=== PATIENT | female | born 1985 | race Caucasian/White ===

== ENCOUNTER 2017-02-26 15:18 | Inpatient (IN) | payer MEDICAID ==
[~2017-02-26] VITALS: Ht 157.5 cm; Wt 56.0 kg
[2017-02-26] MEDS ORDERED: SODIUM CHLORIDE 0.9% 1,000 ML IV ONE (15:42)
[2017-02-26] MEDS ORDERED: METOCLOPRAMIDE 5 MG/ML, 2ML IVPush ONE (16:00)
[2017-02-26] MEDS ORDERED: MORPHINE SULFATE 4 MG/ML, 1ML IVPush ONE (16:00)
[2017-02-26] MEDS ORDERED: DIPHENHYDRAMINE 50 MG/ML, 1ML IVPush ONE (16:00)
[2017-02-26] MEDS ORDERED: SODIUM CHLORIDE FLUSH 10ML SYR IVF ONE (16:00)
[2017-02-26] MEDS ORDERED: SODIUM CHLORIDE 0.9% 1,000ML IVBOLUS ONE (16:00)
[2017-02-26] MEDS ORDERED: DIPHENHYDRAMINE 50 MG/ML, 1ML ONE (16:19)
[2017-02-26] MEDS ORDERED: MORPHINE SULFATE 4 MG/ML, 1ML ONE ×2 (16:19→17:35)
[2017-02-26] MEDS ORDERED: METOCLOPRAMIDE 5 MG/ML, 2ML ONE (16:20)
[2017-02-26 16:28] LABS: BASOPHILS # (AUTO) 0.02 x10^3/uL (0-0.1); BASOPHILS % (AUTO) 0 % (0-1); EOSINOPHILS # (AUTO) 0.01 x10^3/uL (0-0.4); EOSINOPHILS % (AUTO) 0 % (1-7); LYMPHOCYTES # (AUTO) 0.66 x10^3/uL (1-3.4); LYMPHOCYTES % (AUTO) 14 % (22-44); MD NO; MEAN CORPUSCULAR HGB CONC 33.3 g/dL (32.4-35.8); MEAN CORPUSCULAR VOLUME 102.3 fL (80-100); MEAN PLATELET VOLUME 8.3 fL (7.4-10.4); MONOCYTES % (AUTO) 12 % (2-9); NEUTROPHILS # (AUTO) 3.62 x10^3/uL (1.8-6.8); NEUTROPHILS % (AUTO) 74 % (42-75); PLATELET COUNT 125 x10^3/uL (130-400); RED BLOOD COUNT 3.83 x10^6/uL (3.82-5.3); RED CELL DISTRIBUTION WIDTH 19.8 % (9.6-15.2)
[2017-02-26] MEDS ORDERED: PLEASE ENTER ALLERGIES MC SCH (16:30)
[2017-02-26 16:43] LABS: ALANINE AMINOTRANSFERASE 58 U/L (12-78); ALBUMIN 3.4 g/dL (3.4-5.0); ANION GAP 16 mmol/L (5-15); CALCIUM 8.4 mg/dL (8.5-10.1); CHLORIDE 104 mmol/L (98-107); CREATININE 0.56 mg/dL (0.55-1.02)
[2017-02-26 16:44] LABS: TROPONIN I < 0.015 ng/mL (0.000-0.045)
[2017-02-26 16:47] LABS: ALKALINE PHOSPHATASE 83 U/L (45-117); BILIRUBIN,TOTAL 0.5 mg/dL (0.2-1.0); TOTAL PROTEIN 7.1 g/dL (6.4-8.2)
[2017-02-26] MEDS ORDERED: BISACODYL 10 MG SUPP PR PRN (18:00)
[2017-02-26] MEDS ORDERED: morphine SULFATE 10 MG/ML, 1ML IVPush ONE (18:00)
[2017-02-26] MEDS ORDERED: ENOXAPARIN 40 MG/0.4 ML ONE (18:14)
[2017-02-26] MEDS: D5%-0.45NACL+KCL 20MEQ 1,000 ML IV SCH (18:43)
[2017-02-26] MEDS: ENOXAPARIN 40 MG/0.4 ML SQ SCH (18:43)
[2017-02-26 20:00] VITALS: BP 117/83
[2017-02-26] MEDS ORDERED: LORazepam 2 MG/ML, 1ML ONE (20:19)
[2017-02-26] MEDS: LORazepam 2 MG/ML, 1ML IVPush PRN ×2 (20:21→23:32)
[2017-02-26] MEDS: morphine SULFATE 10 MG/ML, 1ML IVPush PRN ×2 (20:22→23:32)
[2017-02-26] MEDS ORDERED: MAGNESIUM SULFATE PMX 4GM/100M 100 ML IV ONE (21:00)
[2017-02-26 22:51] LABS: RAPID INFLUENZA A Negative (Negative); RAPID INFLUENZA B Negative (Negative)
[2017-02-27] MEDS ORDERED: SUCRALFATE 1 GM TABLET PO PRN
[2017-02-27] MEDS: D5%-0.45NACL+KCL 20MEQ 1,000 ML IV SCH ×2 (00:58→07:50)
[2017-02-27 01:31] VITALS: BP 120/77
[2017-02-27] MEDS: NICOTINE 7 MG/24 HR PATCH.TD24 TD SCH (01:37)
[2017-02-27] MEDS: ONDANSETRON 2MG/ML, 2ML IVPush PRN ×4 (01:37→21:22)
[2017-02-27] MEDS: LORazepam 2 MG/ML, 1ML IVPush PRN ×4 (02:31→13:38)
[2017-02-27] MEDS: morphine SULFATE 10 MG/ML, 1ML IVPush PRN ×4 (02:32→13:11)
[2017-02-27 03:11] LABS: CULTURE INDICATED? YES; MICROSCOPIC INDICATED
[2017-02-27] MEDS: SODIUM CHLORIDE 0.9% 1,000 ML IV SCH ×4 (05:29→21:32)
[2017-02-27 05:35] LABS: MEAN CORPUSCULAR HEMOGLOBIN 34.5 pg (27.0-34.8); MEAN CORPUSCULAR HGB CONC 33.6 g/dL (32.4-35.8); MEAN CORPUSCULAR VOLUME 102.6 fL (80-100); RED BLOOD COUNT 3.42 x10^6/uL (3.82-5.3); RED CELL DISTRIBUTION WIDTH 19.5 % (9.6-15.2)
[2017-02-27 05:36] LABS: ANION GAP 7 mmol/L (5-15); CALCIUM 7.4 mg/dL (8.5-10.1); CHLORIDE 103 mmol/L (98-107)
[2017-02-27 05:47] LABS: CREATININE 0.44 mg/dL (0.55-1.02)
[2017-02-27 06:04] LABS: BASOPHILS # (AUTO) 0.02 x10^3/uL (0-0.1); BASOPHILS % (AUTO) 1 % (0-1); EOSINOPHILS # (AUTO) 0.09 x10^3/uL (0-0.4); EOSINOPHILS % (AUTO) 2 % (1-7); LYMPHOCYTES # (AUTO) 0.71 x10^3/uL (1-3.4); LYMPHOCYTES % (AUTO) 16 % (22-44); MD SCAN; MEAN PLATELET VOLUME 8.4 fL (7.4-10.4); MONOCYTES # (AUTO) 0.52 x10^3/uL (0.2-0.8); MONOCYTES % (AUTO) 12 % (2-9); NEUTROPHILS # (AUTO) 3.08 x10^3/uL (1.8-6.8); NEUTROPHILS % (AUTO) 70 % (42-75); PLATELET COUNT 95 x10^3/uL (130-400)
[2017-02-27] MEDS: CITALOPRAM 10 MG TABLET PO SCH (07:53)
[2017-02-27 07:55] VITALS: BP 122/76
[2017-02-27] MEDS: SUCRALFATE 1 GM TABLET PO PRN ×2 (07:55→18:34)
[2017-02-27] MEDS: hydrOXyzine 10MG TABLET PO SCH (08:40)
[2017-02-27] MEDS: POTASSIUM CHLORIDE 20 MEQ, MAGNESIUM SULFATE 2 GM, THIAMINE 100 MG, MVI ADULT 10 ML, FO... IV SCH (10:25)
[2017-02-27 13:08] VITALS: BP 110/78
[2017-02-27] MEDS ORDERED: LORazepam 1MG TABLET PO PRN ×4 (14:30)
[2017-02-27] MEDS ORDERED: LORazepam 2 MG/ML, 1ML IV PRN ×4 (14:30)
[2017-02-27] MEDS ORDERED: POTASSIUM PHOSPHATE 44 MEQ in SODIUM CHLORIDE 0.9% 500 ML IV ONE (15:00)
[2017-02-27 15:16] LABS: CHOL/HDL RATIO 1.8; LDL/HDL RATIO 0.7 (0.5-3.0)
[2017-02-27] MEDS: HYDROmorphone 2 MG/ML, 1ML IVPush PRN ×3 (16:41→21:22)
[2017-02-27] MEDS: LORazepam 2 MG/ML, 1ML IV PRN (16:52)
[2017-02-27] MEDS: ENOXAPARIN 40 MG/0.4 ML SQ SCH ×2 (18:30→18:33)
[2017-02-27 19:12] VITALS: BP 106/76
[2017-02-27] MEDS: LORazepam 0.5MG TABLET PO PRN (21:46)
[2017-02-28] MEDS: NICOTINE 7 MG/24 HR PATCH.TD24 TD SCH (00:04)
[2017-02-28] MEDS: LORazepam 2 MG/ML, 1ML IV PRN ×2 (01:48→10:40)
[2017-02-28] MEDS: HYDROmorphone 2 MG/ML, 1ML IVPush PRN ×5 (01:50→20:20)
[2017-02-28 02:00] VITALS: BP 125/87
[2017-02-28] MEDS: SODIUM CHLORIDE 0.9% 1,000 ML IV SCH ×3 (05:23→17:32)
[2017-02-28] MEDS: ONDANSETRON 2MG/ML, 2ML IVPush PRN ×2 (05:23→16:07)
[2017-02-28 05:43] LABS: CHLORIDE 105 mmol/L (98-107)
[2017-02-28 05:51] LABS: MEAN CORPUSCULAR HEMOGLOBIN 34.4 pg (27.0-34.8); MEAN CORPUSCULAR HGB CONC 33.5 g/dL (32.4-35.8); MEAN CORPUSCULAR VOLUME 102.7 fL (80-100); RED BLOOD COUNT 3.35 x10^6/uL (3.82-5.3); RED CELL DISTRIBUTION WIDTH 19.5 % (9.6-15.2)
[2017-02-28 05:58] LABS: ALANINE AMINOTRANSFERASE 36 U/L (12-78); ALBUMIN 2.8 g/dL (3.4-5.0); ALKALINE PHOSPHATASE 81 U/L (45-117); ANION GAP 8 mmol/L (5-15); BILIRUBIN,TOTAL 0.6 mg/dL (0.2-1.0); CALCIUM 7.5 mg/dL (8.5-10.1); CREATININE 0.47 mg/dL (0.55-1.02)
[2017-02-28 06:09] LABS: BASOPHILS # (AUTO) 0.01 x10^3/uL (0-0.1); BASOPHILS % (AUTO) 0 % (0-1); EOSINOPHILS # (AUTO) 0.23 x10^3/uL (0-0.4); EOSINOPHILS % (AUTO) 6 % (1-7); LYMPHOCYTES # (AUTO) 0.74 x10^3/uL (1-3.4); LYMPHOCYTES % (AUTO) 18 % (22-44); MD SCAN; MEAN PLATELET VOLUME 8.8 fL (7.4-10.4); MONOCYTES # (AUTO) 0.58 x10^3/uL (0.2-0.8); MONOCYTES % (AUTO) 14 % (2-9); NEUTROPHILS # (AUTO) 2.55 x10^3/uL (1.8-6.8); NEUTROPHILS % (AUTO) 62 % (42-75); PLATELET COUNT 83 x10^3/uL (130-400)
[2017-02-28] MEDS: LORazepam 0.5MG TABLET PO PRN ×3 (06:27→20:20)
[2017-02-28 09:37] VITALS: BP 124/92
[2017-02-28] MEDS: hydrOXyzine 10MG TABLET PO SCH (10:40)
[2017-02-28] MEDS: CITALOPRAM 10 MG TABLET PO SCH (10:40)
[2017-02-28] MEDS: POTASSIUM CHLORIDE 20 MEQ, MAGNESIUM SULFATE 2 GM, THIAMINE 100 MG, MVI ADULT 10 ML, FO... IV SCH (12:35)
[2017-02-28 15:00] VITALS: BP 127/90
[2017-02-28] MEDS ORDERED: POTASSIUM PHOSPHATE 44 MEQ in SODIUM CHLORIDE 0.9% 500 ML IV ONE (15:30)
[2017-02-28] MEDS ORDERED: SUCRALFATE 1 GM TABLET PO SCH (16:00)
[2017-02-28] MEDS: CEFTRIAXONE PMX 1GM/50ML 50 ML IV SCH (17:38)
[2017-02-28 20:09] VITALS: BP 130/97
[2017-02-28] MEDS: SUCRALFATE 1 GM/10 ML UDC PO SCH (23:05)
[2017-03-01 00:10] VITALS: BP 124/86
[2017-03-01] MEDS: SODIUM CHLORIDE 0.9% 1,000 ML IV SCH ×4 (00:12→23:07)
[2017-03-01] MEDS: NICOTINE 7 MG/24 HR PATCH.TD24 TD SCH ×2 (00:21→23:07)
[2017-03-01] MEDS: LORazepam 0.5MG TABLET PO PRN ×5 (00:30→20:06)
[2017-03-01] MEDS: HYDROmorphone 2 MG/ML, 1ML IVPush PRN ×3 (00:30→09:11)
[2017-03-01 02:39] LABS: CLOSTRIDIUM DIFFICILE ANTIGEN POSITIVE; CLOSTRIDIUM DIFFICILE TOXIN NEGATIVE (Negative)
[2017-03-01] MEDS: metroNIDAZOLE 500 MG TABLET PO SCH ×4 (04:14→21:07)
[2017-03-01 06:02] LABS: MEAN CORPUSCULAR HEMOGLOBIN 34.5 pg (27.0-34.8); MEAN CORPUSCULAR HGB CONC 33.1 g/dL (32.4-35.8); MEAN CORPUSCULAR VOLUME 104.3 fL (80-100); MEAN PLATELET VOLUME 8.6 fL (7.4-10.4); PLATELET COUNT 90 x10^3/uL (130-400); RED BLOOD COUNT 3.33 x10^6/uL (3.82-5.3); RED CELL DISTRIBUTION WIDTH 19.4 % (9.6-15.2)
[2017-03-01] MEDS: SUCRALFATE 1 GM/10 ML UDC PO SCH ×2 (06:03→11:49)
[2017-03-01] MEDS: ONDANSETRON 2MG/ML, 2ML IVPush PRN ×3 (06:03→19:46)
[2017-03-01 06:09] LABS: ALBUMIN 2.9 g/dL (3.4-5.0); ANION GAP 3 mmol/L (5-15); CALCIUM 7.9 mg/dL (8.5-10.1); CHLORIDE 108 mmol/L (98-107)
[2017-03-01 06:12] LABS: ALANINE AMINOTRANSFERASE 33 U/L (12-78); ALKALINE PHOSPHATASE 88 U/L (45-117); BILIRUBIN,TOTAL 0.6 mg/dL (0.2-1.0); CREATININE 0.47 mg/dL (0.55-1.02); TOTAL PROTEIN 6.3 g/dL (6.4-8.2)
[2017-03-01 06:43] LABS: MD YES
[2017-03-01 06:46] LABS: ANISOCYTOSIS 1+; BAND#(MANUAL) 0.09 x10^3/uL; BANDS%(MANUAL) 3 % (0-7); EOS#(MANUAL) 0.15 x10^3/uL (0.0-0.4); EOS% (MANUAL) 5 % (1-7); LYMPH#(MANUAL) 0.78 x10^3/uL (1-3.4); LYMPHS% (MANUAL) 27 % (22-44); MONOS#(MANUAL) 0.44 x10^3/uL (0.3-2.7); MONOS% (MANUAL) 15 % (2-9); REACTIVE LYMPHS # (MANUAL) 0.03 x10^3/uL (0-0); REACTIVE LYMPHS % (MANUAL) 1 % (0-0); SEG#(MANUAL) 1.42 x10^3/uL (1.8-6.8); SEGS% (MANUAL) 49 % (42-75)
[2017-03-01 06:49] LABS: <PLATELET ESTIMATE> DECREASED; LARGE PLATELETS 1+; POLYCHROMASIA 1+
[2017-03-01 07:48] VITALS: BP 127/97
[2017-03-01] MEDS ORDERED: LORazepam 1MG TABLET ONE (09:01)
[2017-03-01] MEDS: hydrOXyzine 10MG TABLET PO SCH (09:11)
[2017-03-01] MEDS: CITALOPRAM 10 MG TABLET PO SCH (09:12)
[2017-03-01] MEDS: POTASSIUM CHLORIDE 20 MEQ, MAGNESIUM SULFATE 2 GM, THIAMINE 100 MG, MVI ADULT 10 ML, FO... IV SCH (11:49)
[2017-03-01 13:38] VITALS: BP 121/80
[2017-03-01 14:59] LABS: INTERNATIONAL NORMALIZED RATIO 1.07 (0.93-1.1); PROTHROMBIN TIME 11.1 Seconds (9.6-11.5)
[2017-03-01] MEDS: CEFTRIAXONE PMX 1GM/50ML 50 ML IV SCH (16:53)
[2017-03-01] MEDS: KETOROLAC 30 MG/1 ML IVPush PRN (16:53)
[2017-03-01] MEDS ORDERED: SUCRALFATE 1 GM/10 ML UDC PO PRN (18:00)
[2017-03-01 18:51] VITALS: BP 120/83
[2017-03-01] MEDS: NEUTRA PHOS K 250 MG TABLET PO SCH (20:06)
[2017-03-01] MEDS ORDERED: DIPHENHYDRAMINE 12.5MG/5ML, 10ML UDC PO PRN ×2 (22:30)
[2017-03-02] MEDS: LORazepam 0.5MG TABLET PO PRN ×3 (00:45→10:15)
[2017-03-02] MEDS: KETOROLAC 30 MG/1 ML IVPush PRN ×2 (00:46→09:16)
[2017-03-02 01:57] VITALS: BP 91/51
[2017-03-02 05:19] LABS: CHLORIDE 108 mmol/L (98-107); MEAN CORPUSCULAR HEMOGLOBIN 34.4 pg (27.0-34.8); MEAN CORPUSCULAR HGB CONC 33.2 g/dL (32.4-35.8); MEAN CORPUSCULAR VOLUME 103.6 fL (80-100); MEAN PLATELET VOLUME 9.1 fL (7.4-10.4); PLATELET COUNT 108 x10^3/uL (130-400); RED BLOOD COUNT 3.52 x10^6/uL (3.82-5.3); RED CELL DISTRIBUTION WIDTH 19.7 % (9.6-15.2)
[2017-03-02 05:28] LABS: ALANINE AMINOTRANSFERASE 30 U/L (12-78); ALBUMIN 2.9 g/dL (3.4-5.0); ALKALINE PHOSPHATASE 90 U/L (45-117); ANION GAP 5 mmol/L (5-15); BILIRUBIN,TOTAL 0.4 mg/dL (0.2-1.0); CALCIUM 8.4 mg/dL (8.5-10.1); TOTAL PROTEIN 6.5 g/dL (6.4-8.2)
[2017-03-02 05:58] LABS: BASOPHILS # (AUTO) 0.02 x10^3/uL (0-0.1); BASOPHILS % (AUTO) 1 % (0-1); EOSINOPHILS # (AUTO) 0.22 x10^3/uL (0-0.4); EOSINOPHILS % (AUTO) 6 % (1-7); LYMPHOCYTES % (AUTO) 29 % (22-44); MD SCAN; MONOCYTES # (AUTO) 0.59 x10^3/uL (0.2-0.8); MONOCYTES % (AUTO) 17 % (2-9); NEUTROPHILS # (AUTO) 1.65 x10^3/uL (1.8-6.8); NEUTROPHILS % (AUTO) 47 % (42-75)
[2017-03-02 08:39] VITALS: BP 132/90
[2017-03-02] MEDS ORDERED: FOLIC ACID 1 MG TABLET PO SCH (09:00)
[2017-03-02] MEDS ORDERED: MULTIVIT.W/IRON, MINERALS ORAL SOL PO SCH (09:00)
[2017-03-02] MEDS ORDERED: THIAMINE 100MG TABLET PO SCH (09:00)
[2017-03-02] MEDS: hydrOXyzine 10MG TABLET PO SCH (09:09)
[2017-03-02] MEDS: CITALOPRAM 10 MG TABLET PO SCH (09:10)
[2017-03-02] MEDS: NEUTRA PHOS K 250 MG TABLET PO SCH (09:10)
[2017-03-02] MEDS: metroNIDAZOLE 500 MG TABLET PO SCH (09:11)
[2017-03-02] MEDS: SODIUM CHLORIDE 0.9% 1,000 ML IV SCH (09:16)
[2017-03-02] MEDS ORDERED: METR500T PO (10:58)
[2017-03-02] MEDS ORDERED: AMOX1TAB64 PO (10:58)
[2017-03-02] MEDS ORDERED: FOLI-17 PO (10:58)
[2017-03-02] MEDS ORDERED: MULT-53 PO (10:58)
[2017-03-02] MEDS ORDERED: THIA100T6 PO (10:58)
[2017-03-02 12:46] VITALS: BP 129/93
== END 2017-03-02 13:10 | disposition home or self-care (01) | DRG 432 ==
LOC: ED 17:33 → EDIP 17:34 → ED 17:53 → 4NOR 19:45
PROVIDERS: ADMIT Family Medicine; ATTEND Family Medicine
DX: K70.40 Alcoholic hepatic failure without coma (principal); K85.20 Alcohol induced acute pancreatitis without necrosis or infection; K70.10 Alcoholic hepatitis without ascites; D69.59 Other secondary thrombocytopenia; A04.72 Enterocolitis due to Clostridium difficile, not specified as recurrent; E83.39 Other disorders of phosphorus metabolism; E83.42 Hypomagnesemia; N39.0 Urinary tract infection, site not specified; F10.239 Alcohol dependence with withdrawal, unspecified; B96.20 Unspecified Escherichia coli [E. coli] as the cause of diseases classified elsewhere; E87.6 Hypokalemia; F31.9 Bipolar disorder, unspecified; F43.10 Post-traumatic stress disorder, unspecified; J02.0 Streptococcal pharyngitis; K76.0 Fatty (change of) liver, not elsewhere classified; Z72.0 Tobacco use; Z80.1 Family history of malignant neoplasm of trachea, bronchus and lung; Z81.1 Family history of alcohol abuse and dependence; Z83.3 Family history of diabetes mellitus; Z93.3 Colostomy status; A08.8 Other specified intestinal infections
CPT/HCPCS: 36415; 74022; 76700; 80048; 80053; 80061; 80074; 81001; 83690; 83735; 84100; 84484; 84703; 85025; 85610; 86703; 87077; 87081; 87086; 87147; 87186; 87324; 87400; 87493; 87880; 87899; 89055; 93005; 96374; 96375; 96376; J0696; J1170; J1650; J1885; J2405; J3411; J3475; J3480; J7042; G0435; J1200; J2060; J2270; J2765; J7030; J7040

== ENCOUNTER 2019-02-07 00:50 | Inpatient (IN) | payer MEDICAID ==
[~2019-02-07] VITALS: Ht 157.5 cm; Wt 47.7 kg
[~2019-02-07 00:50] MED LIST: AMOX1TAB64 PO; FOLI-17 PO; METR500T PO; MULT-53 PO; THIA100T67 PO
[2019-02-07 01:41] LABS: MEAN CORPUSCULAR HGB CONC 33.4 g/dL (32.4-35.8); MEAN CORPUSCULAR VOLUME 122.6 fL (80-100); MEAN PLATELET VOLUME 8.8 fL (7.4-10.4); PLATELET COUNT 127 x10^3/uL (130-400); RED BLOOD COUNT 2.96 x10^6/uL (3.82-5.3); RED CELL DISTRIBUTION WIDTH 17.9 % (9.6-15.2)
[2019-02-07 01:46] LABS: AMPHETAMINE SCREEN, URINE Negative (Negative); BARBITURATE SCREEN, URINE Negative (Negative); BENZODIAZEPINE SCREEN, URINE Negative (Negative); CANNABINOID SCREEN, URINE Negative (Negative); COCAINE SCREEN, URINE Negative (Negative); METHADONE SCREEN, URINE Negative (Negative); OPIATE SCREEN, URINE Negative (Negative)
[2019-02-07 01:48] LABS: ANION GAP 11 mmol/L (5-15); CALCIUM 8.1 mg/dL (8.5-10.1); CHLORIDE 107 mmol/L (98-107); CREATININE 0.45 mg/dL (0.55-1.02)
[2019-02-07 01:49] LABS: ALANINE AMINOTRANSFERASE 47 U/L (12-78); ALBUMIN 2.5 g/dL (3.4-5.0)
[2019-02-07 01:51] LABS: ALKALINE PHOSPHATASE 276 U/L (45-117); BILIRUBIN,TOTAL 4.9 mg/dL (0.2-1.0)
[2019-02-07 01:52] LABS: SALICYLATE LEVEL < 1.7 mg/dL (2.8-20.0)
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
[2019-02-07 02:20] LABS: BASOPHILS % (AUTO) 0 % (0-1); EOSINOPHILS # (AUTO) 0.04 x10^3/uL (0-0.4); EOSINOPHILS % (AUTO) 1 % (1-7); LYMPHOCYTES # (AUTO) 1.35 x10^3/uL (1-3.4); LYMPHOCYTES % (AUTO) 23 % (22-44); MD SCAN; MONOCYTES # (AUTO) 0.47 x10^3/uL (0.2-0.8); MONOCYTES % (AUTO) 8 % (2-9); NEUTROPHILS # (AUTO) 3.91 x10^3/uL (1.8-6.8); NEUTROPHILS % (AUTO) 68 % (42-75)
--- NOTE | 2019-02-07 02:29 | NUR ---
PT TO BE ADMITTED. PT TO US AT THIS TIME
[2019-02-07] MEDS ORDERED: ONDANSETRON 2MG/ML, 2ML IVPush ONE (02:30)
[2019-02-07] MEDS ORDERED: PROMETHAZINE 25 MG/ML, 1ML IM ONE (02:30)
[2019-02-07] MEDS ORDERED: MORPHINE SULFATE 4 MG/ML, 1ML IVPush PRN (02:30)
[2019-02-07] MEDS ORDERED: THIAMINE 100MG TABLET PO ONE (02:30)
[2019-02-07] MEDS ORDERED: THIAMINE 100MG TABLET ONE (02:31)
[2019-02-07] MEDS ORDERED: ONDANSETRON 2MG/ML, 2ML ONE (02:31)
[2019-02-07] MEDS ORDERED: MORPHINE SULFATE 4 MG/ML, 1ML ONE (02:32)
--- NOTE | 2019-02-07 02:59 | NUR ---
REPORT TO NICHELLE CAMPUZANO
--- NOTE | 2019-02-07 03:11 | NUR ---
BREAK RN: PT MEDICATED PER EMAR. 5 RIGHTS ADDRESSED.
[2019-02-07 03:22] VITALS: BP 102/73
[2019-02-07] MEDS ORDERED: POTASSIUM CHLORIDE 20 MEQ, MAGNESIUM SULFATE 2 GM, THIAMINE 200 MG, MVI ADULT 10 ML, FO... IV SCH (04:14)
[2019-02-07] MEDS ORDERED: PROMETHAZINE 25 MG/ML, 1ML IM PRN (04:30)
[2019-02-07] MEDS: ENOXAPARIN 40 MG/0.4 ML SQ SCH (04:30)
[2019-02-07] MEDS ORDERED: ONDANSETRON 2MG/ML, 2ML IVPush PRN (04:30)
[2019-02-07] MEDS ORDERED: LABETALOL 20 MG/4 ML IVPush PRN (04:30)
[2019-02-07] MEDS ORDERED: LORazepam 1MG TABLET PO PRN ×3 (04:30)
[2019-02-07] MEDS ORDERED: LORazepam 2 MG/ML, 1ML IV PRN ×5 (04:30)
[2019-02-07] MEDS ORDERED: POTASSIUM CHLORIDE 20 MEQ TAB.ER.PRT PO ONE (04:30)
[2019-02-07 05:29] LABS: INTERNATIONAL NORMALIZED RATIO 1.52 (0.93-1.1); PROTHROMBIN TIME 15.7 Seconds (9.6-11.5)
[2019-02-07 06:43] VITALS: BP 84/59
[2019-02-07] MEDS: OMEPRAZOLE 20 MG CAPSULE.DR PO SCH (07:53)
[2019-02-07] MEDS: LORazepam 1MG TABLET PO PRN (07:53)
[2019-02-07] MEDS ORDERED: MAGNESIUM SULFATE PMX 2GM/50ML 50 ML IV ONE (08:00)
[2019-02-07] MEDS ORDERED: PROCHLORPERAZINE 5 MG/ML, 2ML IVPush PRN (09:30)
[2019-02-07 10:01] LABS: CLOSTRIDIUM DIFFICILE ANTIGEN NEGATIVE; CLOSTRIDIUM DIFFICILE TOXIN NEGATIVE (Negative)
[2019-02-07] MEDS: LORazepam 0.5MG TABLET PO PRN ×3 (12:02→21:02)
[2019-02-07 14:55] VITALS: BP 92/55
[2019-02-07 19:50] VITALS: BP 106/75
[2019-02-08 00:44] LABS: OCCULT BLOOD POSITIVE (NEGATIVE)
[2019-02-08 01:18] VITALS: BP 104/72
[2019-02-08] MEDS: LORazepam 0.5MG TABLET PO PRN ×5 (01:20→17:59)
[2019-02-08] MEDS: ENOXAPARIN 40 MG/0.4 ML SQ SCH (04:30)
[2019-02-08 05:18] LABS: ALANINE AMINOTRANSFERASE 39 U/L (12-78); ALBUMIN 2.2 g/dL (3.4-5.0); ANION GAP 8 mmol/L (5-15); CALCIUM 7.2 mg/dL (8.5-10.1); CHLORIDE 103 mmol/L (98-107)
[2019-02-08 05:21] LABS: ALKALINE PHOSPHATASE 242 U/L (45-117); BILIRUBIN,TOTAL 8.1 mg/dL (0.2-1.0); TOTAL PROTEIN 5.1 g/dL (6.4-8.2)
[2019-02-08 06:08] LABS: MEAN CORPUSCULAR HEMOGLOBIN 40.9 pg (27.0-34.8); MEAN CORPUSCULAR HGB CONC 33.4 g/dL (32.4-35.8); MEAN CORPUSCULAR VOLUME 122.8 fL (80-100); MEAN PLATELET VOLUME 8.7 fL (7.4-10.4); PLATELET COUNT 81 x10^3/uL (130-400); RED BLOOD COUNT 2.43 x10^6/uL (3.82-5.3); RED CELL DISTRIBUTION WIDTH 17.9 % (9.6-15.2)
[2019-02-08 06:10] LABS: BASOPHILS # (AUTO) 0.04 x10^3/uL (0-0.1); BASOPHILS % (AUTO) 1 % (0-1); EOSINOPHILS # (AUTO) 0.02 x10^3/uL (0-0.4); EOSINOPHILS % (AUTO) 1 % (1-7); LYMPHOCYTES # (AUTO) 1.01 x10^3/uL (1-3.4); LYMPHOCYTES % (AUTO) 24 % (22-44); MD SCAN; MONOCYTES # (AUTO) 0.37 x10^3/uL (0.2-0.8); MONOCYTES % (AUTO) 9 % (2-9); NEUTROPHILS # (AUTO) 2.79 x10^3/uL (1.8-6.8); NEUTROPHILS % (AUTO) 66 % (42-75)
[2019-02-08 07:35] VITALS: BP 107/75
[2019-02-08] MEDS: POTASSIUM CHLORIDE 20 MEQ, MAGNESIUM SULFATE 2 GM, THIAMINE 200 MG, MVI ADULT 10 ML, FO... IV SCH (08:42)
[2019-02-08] MEDS: OMEPRAZOLE 20 MG CAPSULE.DR PO SCH (08:42)
[2019-02-08] MEDS ORDERED: POTASSIUM CHLORIDE 20 MEQ, MAGNESIUM SULFATE 2 GM, THIAMINE 200 MG, MVI ADULT 10 ML, FO... IV SCH (09:00)
[2019-02-08] MEDS ORDERED: DEXTROSE 50%, 50ML SYRINGE IVPush PRN (11:30)
[2019-02-08] MEDS ORDERED: DEXTROSE 4 GM TAB.CHEW PO PRN (11:30)
[2019-02-08] MEDS ORDERED: GLUCAGON 1 MG IM PRN (11:30)
[2019-02-08] MEDS: OXYcodone IR 5MG TABLET PO PRN ×3 (12:14→23:27)
[2019-02-08 13:41] VITALS: BP 111/81
[2019-02-08] MEDS ORDERED: SODIUM PHOSPHATE 20 MMOL in SODIUM CHLORIDE 0.9% 500 ML IV ONE (14:30)
[2019-02-08] MEDS: D5%-0.9% NACL 1,000 ML IV SCH (16:32)
[2019-02-08] MEDS: SODIUM CHLORIDE FLUSH 10ML SYR IVF SCH (20:26)
[2019-02-08 20:44] VITALS: BP 119/82
[2019-02-08] MEDS: LORazepam 1MG TABLET PO PRN (21:51)
[2019-02-08] MEDS ORDERED: OMNIPAQUE 350 MG/ML, 100ML BOTTLE ONE (22:55)
[2019-02-09 00:17] VITALS: BP 113/80
[2019-02-09] MEDS: LORazepam 0.5MG TABLET PO PRN ×4 (01:50→23:13)
[2019-02-09] MEDS: D5%-0.9% NACL 1,000 ML IV SCH ×2 (01:55→09:10)
[2019-02-09 05:54] LABS: INTERNATIONAL NORMALIZED RATIO 1.46 (0.93-1.1); PROTHROMBIN TIME 15.1 Seconds (9.6-11.5)
[2019-02-09 05:59] LABS: ALBUMIN 2.1 g/dL (3.4-5.0); ANION GAP 6 mmol/L (5-15); CALCIUM 7.5 mg/dL (8.5-10.1); CHLORIDE 106 mmol/L (98-107)
[2019-02-09 06:03] LABS: ALANINE AMINOTRANSFERASE 38 U/L (12-78); ALKALINE PHOSPHATASE 220 U/L (45-117); CREATININE 0.39 mg/dL (0.55-1.02); TOTAL PROTEIN 5.1 g/dL (6.4-8.2)
[2019-02-09] MEDS: OXYcodone IR 5MG TABLET PO PRN ×3 (06:08→23:13)
[2019-02-09 06:28] LABS: MEAN CORPUSCULAR HGB CONC 33.7 g/dL (32.4-35.8); MEAN CORPUSCULAR VOLUME 121.4 fL (80-100); MEAN PLATELET VOLUME 8.8 fL (7.4-10.4); PLATELET COUNT 82 x10^3/uL (130-400); RED BLOOD COUNT 2.42 x10^6/uL (3.82-5.3); RED CELL DISTRIBUTION WIDTH 17.6 % (9.6-15.2)
[2019-02-09 06:29] LABS: BASOPHILS # (AUTO) 0.02 x10^3/uL (0-0.1); BASOPHILS % (AUTO) 1 % (0-1); EOSINOPHILS # (AUTO) 0.05 x10^3/uL (0-0.4); EOSINOPHILS % (AUTO) 1 % (1-7); LYMPHOCYTES # (AUTO) 0.59 x10^3/uL (1-3.4); LYMPHOCYTES % (AUTO) 17 % (22-44); MD SCAN; MONOCYTES # (AUTO) 0.28 x10^3/uL (0.2-0.8); MONOCYTES % (AUTO) 8 % (2-9); NEUTROPHILS # (AUTO) 2.57 x10^3/uL (1.8-6.8); NEUTROPHILS % (AUTO) 73 % (42-75)
[2019-02-09 08:50] VITALS: BP 104/73
[2019-02-09] MEDS: OMEPRAZOLE 20 MG CAPSULE.DR PO SCH (09:07)
[2019-02-09] MEDS: SODIUM CHLORIDE FLUSH 10ML SYR IVF SCH ×2 (09:10→20:25)
[2019-02-09] MEDS ORDERED: CEFTRIAXONE PMX 1GM/50ML 50 ML IV SCH (09:30)
[2019-02-09] MEDS ORDERED: METRONIDAZOLE PMX 500MG/100ML 100 ML IV SCH (10:00)
[2019-02-09] MEDS: POTASSIUM CHLORIDE 20 MEQ, MAGNESIUM SULFATE 2 GM, THIAMINE 200 MG, MVI ADULT 10 ML, FO... IV SCH (11:43)
[2019-02-09 15:25] VITALS: BP 120/89
[2019-02-09] MEDS ORDERED: SODIUM PHOSPHATE 20 MMOL in SODIUM CHLORIDE 0.9% 500 ML IV ONE (16:00)
[2019-02-09] MEDS ORDERED: MAGNESIUM SULFATE 3 GM in SODIUM CHLORIDE 0.9% 100 ML IV ONE (16:00)
[2019-02-09 19:16] VITALS: BP 114/85
[2019-02-10 02:24] VITALS: BP 115/85
[2019-02-10] MEDS: OXYcodone IR 5MG TABLET PO PRN ×3 (05:11→16:30)
[2019-02-10 05:26] LABS: CHLORIDE 109 mmol/L (98-107)
[2019-02-10 05:34] LABS: ALANINE AMINOTRANSFERASE 41 U/L (12-78); ALBUMIN 1.9 g/dL (3.4-5.0); ALKALINE PHOSPHATASE 211 U/L (45-117); ANION GAP 4 mmol/L (5-15); CALCIUM 7.4 mg/dL (8.5-10.1); CREATININE 0.43 mg/dL (0.55-1.02); TOTAL PROTEIN 4.9 g/dL (6.4-8.2)
[2019-02-10] MEDS: D5%-0.9% NACL 1,000 ML IV SCH ×3 (06:13→23:11)
[2019-02-10 06:34] VITALS: BP 117/80
[2019-02-10 07:38] LABS: MEAN CORPUSCULAR HEMOGLOBIN 41.2 pg (27.0-34.8); MEAN CORPUSCULAR HGB CONC 33.3 g/dL (32.4-35.8); MEAN CORPUSCULAR VOLUME 123.4 fL (80-100); MEAN PLATELET VOLUME 8.6 fL (7.4-10.4); PLATELET COUNT 83 x10^3/uL (130-400); RED BLOOD COUNT 2.31 x10^6/uL (3.82-5.3)
[2019-02-10 07:51] LABS: BASOPHILS # (AUTO) 0.01 x10^3/uL (0-0.1); BASOPHILS % (AUTO) 0 % (0-1); EOSINOPHILS # (AUTO) 0.05 x10^3/uL (0-0.4); EOSINOPHILS % (AUTO) 1 % (1-7); LYMPHOCYTES # (AUTO) 0.74 x10^3/uL (1-3.4); LYMPHOCYTES % (AUTO) 19 % (22-44); MD SCAN; MONOCYTES # (AUTO) 0.33 x10^3/uL (0.2-0.8); MONOCYTES % (AUTO) 8 % (2-9); NEUTROPHILS # (AUTO) 2.85 x10^3/uL (1.8-6.8); NEUTROPHILS % (AUTO) 72 % (42-75)
[2019-02-10] MEDS: OMEPRAZOLE 20 MG CAPSULE.DR PO SCH (08:09)
[2019-02-10] MEDS: SODIUM CHLORIDE FLUSH 10ML SYR IVF SCH ×2 (09:00→20:40)
[2019-02-10] MEDS: LORazepam 0.5MG TABLET PO PRN (10:59)
[2019-02-10] MEDS ORDERED: HEPARIN 5,000 UNITS/ML, 1ML IV PRN (13:00)
[2019-02-10] MEDS ORDERED: HEPARIN 25,000 UNITS/500ML PMX 500 ML IV PRN (13:00)
[2019-02-10] MEDS ORDERED: HEPARIN 5,000 UNITS/ML, 1ML IV ONE (13:00)
[2019-02-10 13:54] VITALS: BP 106/75
[2019-02-10] MEDS ORDERED: OMNIPAQUE 350 MG/ML, 100ML BOTTLE ONE (17:24)
[2019-02-10 19:09] VITALS: BP 112/79
[2019-02-11 01:18] VITALS: BP 111/70
[2019-02-11] MEDS: OXYcodone IR 5MG TABLET PO PRN ×4 (01:50→21:04)
[2019-02-11 05:56] LABS: MEAN CORPUSCULAR HEMOGLOBIN 40.7 pg (27.0-34.8); MEAN CORPUSCULAR VOLUME 123.3 fL (80-100); MEAN PLATELET VOLUME 8.4 fL (7.4-10.4); PLATELET COUNT 85 x10^3/uL (130-400); RED BLOOD COUNT 2.19 x10^6/uL (3.82-5.3); RED CELL DISTRIBUTION WIDTH 18.5 % (9.6-15.2)
[2019-02-11 05:58] LABS: ALANINE AMINOTRANSFERASE 36 U/L (12-78); ALBUMIN 1.9 g/dL (3.4-5.0); ANION GAP 5 mmol/L (5-15); CALCIUM 7.7 mg/dL (8.5-10.1); CHLORIDE 111 mmol/L (98-107); CREATININE 0.32 mg/dL (0.55-1.02)
[2019-02-11 06:00] LABS: ALKALINE PHOSPHATASE 195 U/L (45-117); BILIRUBIN,TOTAL 7.2 mg/dL (0.2-1.0); TOTAL PROTEIN 4.7 g/dL (6.4-8.2)
[2019-02-11] MEDS: D5%-0.9% NACL 1,000 ML IV SCH ×2 (06:06→14:30)
[2019-02-11 06:43] LABS: BASOPHILS # (AUTO) 0.02 x10^3/uL (0-0.1); BASOPHILS % (AUTO) 1 % (0-1); EOSINOPHILS # (AUTO) 0.06 x10^3/uL (0-0.4); EOSINOPHILS % (AUTO) 2 % (1-7); LYMPHOCYTES # (AUTO) 0.71 x10^3/uL (1-3.4); LYMPHOCYTES % (AUTO) 20 % (22-44); MD SCAN; MONOCYTES # (AUTO) 0.44 x10^3/uL (0.2-0.8); MONOCYTES % (AUTO) 13 % (2-9); NEUTROPHILS # (AUTO) 2.27 x10^3/uL (1.8-6.8); NEUTROPHILS % (AUTO) 65 % (42-75)
[2019-02-11] MEDS: FOLIC ACID 1 MG TABLET PO SCH (07:36)
[2019-02-11] MEDS: THIAMINE 100MG TABLET PO SCH (07:36)
[2019-02-11] MEDS: OMEPRAZOLE 20 MG CAPSULE.DR PO SCH (07:36)
[2019-02-11] MEDS: SODIUM CHLORIDE FLUSH 10ML SYR IVF SCH ×2 (07:36→21:03)
[2019-02-11] MEDS: MULTIVITAMIN 1 TABLET PO SCH (07:36)
[2019-02-11 08:02] VITALS: BP 107/77
[2019-02-11 08:23] LABS: CRYPTOSPORIDIUM ANTIGEN Negative (Negative)
[2019-02-11] MEDS ORDERED: POTASSIUM CHLORIDE 20 MEQ TAB.ER.PRT PO ONE (08:30)
[2019-02-11] MEDS ORDERED: MAGNESIUM SULFATE PMX 2GM/50ML 50 ML IV ONE (08:30)
[2019-02-11] MEDS: NEUTRA PHOS K 250 MG TABLET PO SCH ×3 (11:37→21:03)
[2019-02-11 13:17] VITALS: BP 109/76
[2019-02-11 20:41] VITALS: BP 125/89
[2019-02-12 00:19] VITALS: BP 97/66
[2019-02-12 06:38] LABS: ALANINE AMINOTRANSFERASE 38 U/L (12-78); ANION GAP 8 mmol/L (5-15); CALCIUM 8.1 mg/dL (8.5-10.1); CHLORIDE 109 mmol/L (98-107)
[2019-02-12 06:41] LABS: ALKALINE PHOSPHATASE 199 U/L (45-117); BILIRUBIN,TOTAL 8.2 mg/dL (0.2-1.0); CREATININE 0.34 mg/dL (0.55-1.02); TOTAL PROTEIN 5.1 g/dL (6.4-8.2)
[2019-02-12 06:47] LABS: MEAN CORPUSCULAR HEMOGLOBIN 41.5 pg (27.0-34.8); MEAN CORPUSCULAR HGB CONC 33.3 g/dL (32.4-35.8); MEAN CORPUSCULAR VOLUME 124.4 fL (80-100); MEAN PLATELET VOLUME 8.8 fL (7.4-10.4); PLATELET COUNT 94 x10^3/uL (130-400); RED BLOOD COUNT 2.38 x10^6/uL (3.82-5.3); RED CELL DISTRIBUTION WIDTH 19.6 % (9.6-15.2)
[2019-02-12 07:38] LABS: BASOPHILS # (AUTO) 0.01 x10^3/uL (0-0.1); BASOPHILS % (AUTO) 0 % (0-1); EOSINOPHILS # (AUTO) 0.04 x10^3/uL (0-0.4); EOSINOPHILS % (AUTO) 1 % (1-7); LYMPHOCYTES # (AUTO) 1.42 x10^3/uL (1-3.4); LYMPHOCYTES % (AUTO) 29 % (22-44); MD SCAN; MONOCYTES # (AUTO) 0.68 x10^3/uL (0.2-0.8); MONOCYTES % (AUTO) 14 % (2-9); NEUTROPHILS # (AUTO) 2.68 x10^3/uL (1.8-6.8); NEUTROPHILS % (AUTO) 56 % (42-75)
[2019-02-12] MEDS: MULTIVITAMIN 1 TABLET PO SCH (08:20)
[2019-02-12] MEDS: THIAMINE 100MG TABLET PO SCH (08:20)
[2019-02-12] MEDS: FOLIC ACID 1 MG TABLET PO SCH (08:20)
[2019-02-12] MEDS: OMEPRAZOLE 20 MG CAPSULE.DR PO SCH (08:20)
[2019-02-12] MEDS: SODIUM CHLORIDE FLUSH 10ML SYR IVF SCH ×2 (08:21→21:48)
[2019-02-12] MEDS: OXYcodone IR 5MG TABLET PO PRN ×2 (08:24→21:48)
[2019-02-12 08:30] VITALS: BP 94/61
[2019-02-12] MEDS ORDERED: MAGNESIUM SULFATE PMX 2GM/50ML 50 ML IV ONE (09:00)
[2019-02-12 13:51] VITALS: BP 100/64
[2019-02-12 20:28] VITALS: BP 104/75
[2019-02-13] MEDS ORDERED: CATHFLO-ALTEPLASE 2 MG/2 ML CATHFLUSH ONE (01:30)
[2019-02-13 03:30] VITALS: BP 113/79
[2019-02-13 04:57] LABS: MEAN CORPUSCULAR HEMOGLOBIN 41.7 pg (27.0-34.8); MEAN CORPUSCULAR HGB CONC 33.4 g/dL (32.4-35.8); MEAN CORPUSCULAR VOLUME 124.8 fL (80-100); MEAN PLATELET VOLUME 8.7 fL (7.4-10.4); PLATELET COUNT 104 x10^3/uL (130-400)
[2019-02-13 05:03] LABS: INTERNATIONAL NORMALIZED RATIO 1.35 (0.93-1.1)
[2019-02-13 05:08] LABS: ALBUMIN 2.1 g/dL (3.4-5.0); ANION GAP 4 mmol/L (5-15); CALCIUM 8.5 mg/dL (8.5-10.1); CHLORIDE 106 mmol/L (98-107)
[2019-02-13 05:12] LABS: ALANINE AMINOTRANSFERASE 38 U/L (12-78); ALKALINE PHOSPHATASE 208 U/L (45-117); BILIRUBIN,TOTAL 8.4 mg/dL (0.2-1.0); TOTAL PROTEIN 5.4 g/dL (6.4-8.2)
[2019-02-13 05:56] LABS: BASOPHILS % (AUTO) 0 % (0-1); EOSINOPHILS # (AUTO) 0.03 x10^3/uL (0-0.4); EOSINOPHILS % (AUTO) 1 % (1-7); LYMPHOCYTES % (AUTO) 23 % (22-44); MD SCAN; MONOCYTES # (AUTO) 0.73 x10^3/uL (0.2-0.8); MONOCYTES % (AUTO) 15 % (2-9); NEUTROPHILS # (AUTO) 3.01 x10^3/uL (1.8-6.8); NEUTROPHILS % (AUTO) 62 % (42-75)
[2019-02-13 06:53] VITALS: BP 185/90
[2019-02-13] MEDS ORDERED: PROMETHAZINE 25 MG/ML, 1ML IV PRN (08:00)
[2019-02-13] MEDS ORDERED: KETOROLAC 30 MG/1 ML IV PRN (08:00)
[2019-02-13] MEDS ORDERED: FENTANYL PF 100 MCG/2ML IV PRN (08:00)
[2019-02-13] MEDS ORDERED: SUCCINYLCHOLINE 20 MG/ML, 10ML ONE (08:00)
[2019-02-13] MEDS ORDERED: HYDROmorphone 1 MG/ML, 1ML INJ IV PRN (08:00)
[2019-02-13] MEDS ORDERED: ONDANSETRON 2MG/ML, 2ML IVPush PRN (08:00)
[2019-02-13] MEDS ORDERED: METOCLOPRAMIDE 5 MG/ML, 2ML IV PRN (08:00)
[2019-02-13] MEDS ORDERED: hydrALAzine 20 MG/ML, 1ML IV PRN (08:00)
[2019-02-13] MEDS ORDERED: ONDANSETRON 2MG/ML, 2ML ONE (08:00)
[2019-02-13] MEDS ORDERED: MEPERIDINE/PF 25MG/0.5ML IVPush PRN (08:00)
[2019-02-13] MEDS ORDERED: OXYcodone 5 MG/5 ML ORAL.SOL UDC PO PRN (08:00)
[2019-02-13] MEDS ORDERED: ALBUTEROL SULFATE 2.5 MG/3 ML NPPB PRN (08:00)
[2019-02-13] MEDS ORDERED: LABETALOL 5MG/ML, 20ML IV PRN (08:00)
[2019-02-13] MEDS ORDERED: PROPOFOL 10 MG/ML, 20ML ONE (08:00)
[2019-02-13 08:35] VITALS: BP 102/75
[2019-02-13] MEDS: OMEPRAZOLE 20 MG CAPSULE.DR PO SCH (08:38)
[2019-02-13] MEDS: MULTIVITAMIN 1 TABLET PO SCH (08:38)
[2019-02-13] MEDS: THIAMINE 100MG TABLET PO SCH (08:39)
[2019-02-13] MEDS: SODIUM CHLORIDE FLUSH 10ML SYR IVF SCH (08:39)
[2019-02-13] MEDS: OXYcodone IR 5MG TABLET PO PRN (08:39)
[2019-02-13] MEDS: FOLIC ACID 1 MG TABLET PO SCH (08:39)
[2019-02-13] MEDS ORDERED: OMEP-110 PO (12:20)
== END 2019-02-13 13:20 | disposition home or self-care (01) | DRG 432 ==
LOC: ED 01:50 → EDIP 02:22 → 4NW 03:21 → DCLOUNGE 02-13 12:56
PROVIDERS: ADMIT Family Medicine; ATTEND Hospitalist
PROC: 0DB68ZX Excision of Stomach, Via Natural or Artificial Opening Endoscopic, Diagnostic (ICD-10-PCS; principal; 2019-02-13 07:30)
DX: K70.10 Alcoholic hepatitis without ascites (principal); E43 Unspecified severe protein-calorie malnutrition; I81 Portal vein thrombosis; Z68.1 Body mass index [BMI] 19.9 or less, adult; F10.239 Alcohol dependence with withdrawal, unspecified; K76.6 Portal hypertension; C50.919 Malignant neoplasm of unspecified site of unspecified female breast; D53.9 Nutritional anemia, unspecified; D69.6 Thrombocytopenia, unspecified; D75.89 Other specified diseases of blood and blood-forming organs; E83.42 Hypomagnesemia; E87.6 Hypokalemia; F10.229 Alcohol dependence with intoxication, unspecified; F17.210 Nicotine dependence, cigarettes, uncomplicated; F31.9 Bipolar disorder, unspecified; F43.10 Post-traumatic stress disorder, unspecified; G89.29 Other chronic pain; K31.89 Other diseases of stomach and duodenum; K52.9 Noninfective gastroenteritis and colitis, unspecified; K76.0 Fatty (change of) liver, not elsewhere classified; M79.18 Myalgia, other site; K80.20 Calculus of gallbladder without cholecystitis without obstruction; K82.8 Other specified diseases of gallbladder; Z63.8 Other specified problems related to primary support group; Z90.13 Acquired absence of bilateral breasts and nipples; Z90.49 Acquired absence of other specified parts of digestive tract; Z92.21 Personal history of antineoplastic chemotherapy
CPT/HCPCS: 36415; 84145; 87046; 87427; 96374; 96375; 99285; J7042; 70450; 74177; 76700; 80053; 80074; 80307; 82140; 82272; 82607; 83631; 83690; 83735; 84100; 84443; 84703; 85025; 85520; 85610; 87040; 87324; 87328; 87329; 88305; 88342; 93005; 93975; G0378; J1644; J2405; J2704; J2997; J3411; J3475; J3480; Q9967; J0330; J0780; J2270; J7040

== ENCOUNTER 2019-05-31 23:02 | Inpatient (IN) | payer MEDICAID ==
[~2019-05-31] VITALS: Ht 157.5 cm; Wt 47.0 kg
[~2019-05-31 23:02] MED LIST changes: +OMEP-110 PO
[2019-05-31] MEDS ORDERED: SODIUM CHLORIDE 0.9% 1,000ML IVBOLUS ONE (23:30)
[2019-05-31] MEDS ORDERED: MAGNESIUM SULFATE PMX 2GM/50ML 50 ML IV ONE (23:30)
[2019-05-31] MEDS ORDERED: NALOXONE 0.4 MG/ML, 1ML IVPush ONE (23:30)
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
[2019-05-31 23:37] LABS: ANION GAP 15 mmol/L (5-15); CALCIUM 9.4 mg/dL (8.5-10.1); CHLORIDE 106 mmol/L (98-107)
[2019-05-31 23:43] LABS: ALANINE AMINOTRANSFERASE 36 U/L (12-78); ALKALINE PHOSPHATASE 110 U/L (45-117); BILIRUBIN,TOTAL 1.1 mg/dL (0.2-1.0); CREATININE 0.56 mg/dL (0.55-1.02); TOTAL PROTEIN 8.4 g/dL (6.4-8.2)
[2019-05-31 23:44] LABS: MEAN CORPUSCULAR HGB CONC 33.2 g/dL (32.4-35.8); MEAN CORPUSCULAR VOLUME 102.4 fL (80-100); MEAN PLATELET VOLUME 7.8 fL (7.4-10.4); PLATELET COUNT 147 x10^3/uL (130-400); RED BLOOD COUNT 4.31 x10^6/uL (3.82-5.3); RED CELL DISTRIBUTION WIDTH 14.9 % (9.6-15.2)
[2019-05-31 23:46] LABS: SALICYLATE LEVEL < 1.7 mg/dL (2.8-20.0)
[2019-05-31 23:50] LABS: TROPONIN I < 0.015 ng/mL (0.000-0.045)
[2019-05-31] MEDS ORDERED: MAGNESIUM SULFATE PMX 2GM/50ML 50 ML ONE (23:51)
[2019-05-31 23:58] LABS: BASOPHILS # (AUTO) 0.03 x10^3/uL (0-0.1); BASOPHILS % (AUTO) 1 % (0-1); EOSINOPHILS # (AUTO) 0.02 x10^3/uL (0-0.4); EOSINOPHILS % (AUTO) 1 % (1-7); LYMPHOCYTES % (AUTO) 44 % (22-44); MD MORPH REVIEW ONLY; MONOCYTES # (AUTO) 0.37 x10^3/uL (0.2-0.8); MONOCYTES % (AUTO) 13 % (2-9); NEUTROPHILS # (AUTO) 1.21 x10^3/uL (1.8-6.8); NEUTROPHILS % (AUTO) 41 % (42-75)
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
[2019-05-31 23:59] LABS: ANISOCYTOSIS 1+; TEAR DROPS 1+
[2019-06-01] LABS: OVALOCYTES 1+
[2019-06-01] MEDS ORDERED: POTASSIUM CHLORIDE 20 MEQ in SODIUM CHLORIDE 0.9% 250 ML IV ONE
[2019-06-01 00:01] LABS: <PLATELET ESTIMATE> ADEQUATE; <PLT MORPHOLOGY> NORMAL PLT MORPH
[2019-06-01 00:16] LABS: AMPHETAMINE SCREEN, URINE Positive (Negative); BARBITURATE SCREEN, URINE Negative (Negative); BENZODIAZEPINE SCREEN, URINE Negative (Negative); CANNABINOID SCREEN, URINE Negative (Negative); COCAINE SCREEN, URINE Negative (Negative); METHADONE SCREEN, URINE Negative (Negative); OPIATE SCREEN, URINE Negative (Negative)
[2019-06-01] MEDS ORDERED: TRAZ50TA66 PO (00:52)
[2019-06-01] MEDS ORDERED: PANT20TA2 PO (00:52)
[2019-06-01] MEDS ORDERED: WARF-36 PO (00:52)
--- NOTE | 2019-06-01 01:06 | NUR ---
PHARMACIST CALL TO SEE IF MAG AND POTASSIUM COULD BE RUN TOGETHER IN THE SAME LINE. PHARMACIST SAID YES YOU CAN RUN IN THE SAME LINE
[2019-06-01 02:20] VITALS: BP 97/63
[2019-06-01] MEDS: NS + 20MEQ KCL 1,000 ML IV SCH ×3 (03:35→10:39)
[2019-06-01 08:57] VITALS: BP 102/57
[2019-06-01] MEDS: MULTIVITAMINS/MINERALS TABLET PO SCH (09:02)
[2019-06-01] MEDS: OMEPRAZOLE 20 MG CAPSULE.DR PO SCH (09:02)
[2019-06-01] MEDS: THIAMINE 100MG TABLET PO SCH (09:02)
[2019-06-01] MEDS: FOLIC ACID 1 MG TABLET PO SCH (09:02)
[2019-06-01] MEDS ORDERED: LORazepam 1MG TABLET PO PRN ×2 (11:30)
[2019-06-01] MEDS ORDERED: LORazepam 2 MG/ML, 1ML IV PRN ×3 (11:30)
[2019-06-01 11:42] VITALS: BP 100/66
[2019-06-01] MEDS: LORazepam 1MG TABLET PO PRN (11:44)
[2019-06-01 12:27] VITALS: BP 104/67
[2019-06-01 16:21] LABS: INTERNATIONAL NORMALIZED RATIO 1.55 (0.93-1.1); PROTHROMBIN TIME 16.5 Seconds (9.6-11.5)
[2019-06-01] MEDS ORDERED: WARFARIN 5 MG TABLET PO-COUM SCH (18:00)
[2019-06-01] MEDS ORDERED: WARFARIN 3 MG TABLET PO-COUM ONE (18:00)
[2019-06-01 19:31] LABS: CLOSTRIDIUM DIFFICILE ANTIGEN NEGATIVE; CLOSTRIDIUM DIFFICILE TOXIN NEGATIVE (Negative)
[2019-06-01 20:32] VITALS: BP 119/82
[2019-06-01] MEDS: CHLORDIAZEPOXIDE 25 MG CAPSULE PO PRN (22:05)
[2019-06-02] MEDS: LORazepam 1MG TABLET PO PRN (00:25)
[2019-06-02 02:03] VITALS: BP 108/71
[2019-06-02 06:20] LABS: INTERNATIONAL NORMALIZED RATIO 1.7 (0.93-1.1); MEAN CORPUSCULAR HEMOGLOBIN 34.3 pg (27.0-34.8); MEAN CORPUSCULAR HGB CONC 33.2 g/dL (32.4-35.8); MEAN CORPUSCULAR VOLUME 103.4 fL (80-100); MEAN PLATELET VOLUME 7.7 fL (7.4-10.4); PLATELET COUNT 101 x10^3/uL (130-400); PROTHROMBIN TIME 18.1 Seconds (9.6-11.5); RED BLOOD COUNT 3.33 x10^6/uL (3.82-5.3); RED CELL DISTRIBUTION WIDTH 14.8 % (9.6-15.2)
[2019-06-02 06:22] LABS: ANION GAP 5 mmol/L (5-15); CALCIUM 9.1 mg/dL (8.5-10.1); CHLORIDE 112 mmol/L (98-107); CREATININE 0.55 mg/dL (0.55-1.02)
[2019-06-02 06:43] LABS: MD YES
[2019-06-02 06:46] LABS: EOS#(MANUAL) 0.03 x10^3/uL (0.0-0.4); EOS% (MANUAL) 1 % (1-7); LYMPH#(MANUAL) 1.15 x10^3/uL (1-3.4); LYMPHS% (MANUAL) 46 % (22-44); MONOS% (MANUAL) 4 % (2-9); SEG#(MANUAL) 1.23 x10^3/uL (1.8-6.8); SEGS% (MANUAL) 49 % (42-75)
[2019-06-02 06:47] LABS: OVALOCYTES 1+
[2019-06-02 06:49] LABS: <PLATELET ESTIMATE> DECREASED; <PLT MORPHOLOGY> NORMAL PLT MORPH
[2019-06-02 07:00] VITALS: BP 95/62
[2019-06-02] MEDS: THIAMINE 100MG TABLET PO SCH (09:07)
[2019-06-02] MEDS: MULTIVITAMINS/MINERALS TABLET PO SCH (09:07)
[2019-06-02] MEDS: FOLIC ACID 1 MG TABLET PO SCH (09:07)
[2019-06-02] MEDS: CHLORDIAZEPOXIDE 25 MG CAPSULE PO PRN ×3 (09:07→21:37)
[2019-06-02] MEDS: OMEPRAZOLE 20 MG CAPSULE.DR PO SCH (09:07)
[2019-06-02 13:52] VITALS: BP 115/82
[2019-06-02] MEDS ORDERED: WARFARIN 2.5 MG TABLET PO-COUM ONE (18:00)
[2019-06-02] MEDS ORDERED: WARFARIN 2 MG TABLET PO-COUM ONE (18:00)
[2019-06-02 19:28] VITALS: BP 118/74
[2019-06-02] MEDS: LORazepam 0.5MG TABLET PO PRN (21:24)
[2019-06-03 01:30] VITALS: BP 104/69
[2019-06-03] MEDS: LORazepam 1MG TABLET PO PRN (01:39)
[2019-06-03 06:54] LABS: ANION GAP 7 mmol/L (5-15); CALCIUM 9.4 mg/dL (8.5-10.1); CHLORIDE 108 mmol/L (98-107); CREATININE 0.49 mg/dL (0.55-1.02)
[2019-06-03 07:00] LABS: MEAN CORPUSCULAR VOLUME 103.1 fL (80-100); RED BLOOD COUNT 3.59 x10^6/uL (3.82-5.3); RED CELL DISTRIBUTION WIDTH 14.2 % (9.6-15.2)
[2019-06-03 07:27] LABS: INTERNATIONAL NORMALIZED RATIO 2.14 (0.93-1.1); PROTHROMBIN TIME 22.9 Seconds (9.6-11.5)
[2019-06-03 07:46] VITALS: BP 97/63
[2019-06-03 07:48] LABS: MEAN PLATELET VOLUME 7.9 fL (7.4-10.4); PLATELET COUNT 95 x10^3/uL (130-400)
[2019-06-03 07:51] LABS: MD YES
[2019-06-03 07:55] LABS: BAND#(MANUAL) 0.03 x10^3/uL; BANDS%(MANUAL) 1 % (0-7); EOS#(MANUAL) 0.14 x10^3/uL (0.0-0.4); EOS% (MANUAL) 4 % (1-7); LYMPH#(MANUAL) 1.29 x10^3/uL (1-3.4); LYMPHS% (MANUAL) 38 % (22-44); MONOS% (MANUAL) 6 % (2-9); SEG#(MANUAL) 1.73 x10^3/uL (1.8-6.8); SEGS% (MANUAL) 51 % (42-75)
[2019-06-03 07:57] LABS: OVALOCYTES 1+
[2019-06-03 07:58] LABS: HYPOCHROMIA 1+
[2019-06-03 07:59] LABS: <PLATELET ESTIMATE> DECREASED; <PLT MORPHOLOGY> NORMAL PLT MORPH
[2019-06-03] MEDS: THIAMINE 100MG TABLET PO SCH (09:19)
[2019-06-03] MEDS: OMEPRAZOLE 20 MG CAPSULE.DR PO SCH (09:19)
[2019-06-03] MEDS: MULTIVITAMINS/MINERALS TABLET PO SCH (09:19)
[2019-06-03] MEDS: FOLIC ACID 1 MG TABLET PO SCH (09:19)
[2019-06-03 11:00] VITALS: BP 97/61
[2019-06-03] MEDS: LORazepam 0.5MG TABLET PO PRN ×3 (11:23→20:11)
[2019-06-03] MEDS ORDERED: MAGNESIUM SULFATE PMX 2GM/50ML 50 ML IV ONE (11:30)
[2019-06-03 15:12] VITALS: BP 110/65
[2019-06-03] MEDS ORDERED: WARFARIN 5 MG TABLET PO-COUM ONE (18:00)
[2019-06-03 19:51] VITALS: BP 103/68
[2019-06-03 22:47] LABS: MICROSCOPIC NOT IND
[2019-06-03 22:56] LABS: CULTURE INDICATED? NO
[2019-06-04] MEDS: LORazepam 0.5MG TABLET PO PRN ×5 (00:22→18:20)
[2019-06-04 01:09] VITALS: BP 110/79
[2019-06-04 06:55] LABS: INTERNATIONAL NORMALIZED RATIO 1.79 (0.93-1.1); PROTHROMBIN TIME 19.1 Seconds (9.6-11.5)
[2019-06-04 07:00] VITALS: BP 103/60
[2019-06-04 07:00] LABS: ANION GAP 5 mmol/L (5-15); CALCIUM 8.9 mg/dL (8.5-10.1); CHLORIDE 109 mmol/L (98-107)
[2019-06-04 07:02] LABS: CREATININE 0.45 mg/dL (0.55-1.02)
[2019-06-04 07:10] LABS: MEAN CORPUSCULAR HEMOGLOBIN 33.7 pg (27.0-34.8); MEAN CORPUSCULAR HGB CONC 32.8 g/dL (32.4-35.8); MEAN CORPUSCULAR VOLUME 102.8 fL (80-100); MEAN PLATELET VOLUME 8.5 fL (7.4-10.4); PLATELET COUNT 95 x10^3/uL (130-400); RED BLOOD COUNT 3.52 x10^6/uL (3.82-5.3); RED CELL DISTRIBUTION WIDTH 14.3 % (9.6-15.2)
[2019-06-04 07:12] LABS: MD YES
[2019-06-04 07:15] LABS: BAND#(MANUAL) 0.04 x10^3/uL; BANDS%(MANUAL) 1 % (0-7); EOS#(MANUAL) 0.11 x10^3/uL (0.0-0.4); EOS% (MANUAL) 3 % (1-7); LYMPH#(MANUAL) 1.52 x10^3/uL (1-3.4); LYMPHS% (MANUAL) 41 % (22-44); METAMYELOCYTES# (MANUAL) 0.04 x10^3/uL (0-0); METAMYELOCYTES% (MANUAL) 1 % (0-1); MONOS#(MANUAL) 0.22 x10^3/uL (0.3-2.7); MONOS% (MANUAL) 6 % (2-9); SEG#(MANUAL) 1.78 x10^3/uL (1.8-6.8); SEGS% (MANUAL) 48 % (42-75)
[2019-06-04 07:16] LABS: OVALOCYTES 1+
[2019-06-04 07:17] LABS: <PLATELET ESTIMATE> DECREASED
[2019-06-04 07:18] LABS: <PLT MORPHOLOGY> NORMAL PLT MORPH
[2019-06-04] MEDS: MULTIVITAMINS/MINERALS TABLET PO SCH (08:23)
[2019-06-04] MEDS: FOLIC ACID 1 MG TABLET PO SCH (08:23)
[2019-06-04] MEDS: OMEPRAZOLE 20 MG CAPSULE.DR PO SCH (08:23)
[2019-06-04] MEDS: THIAMINE 100MG TABLET PO SCH (08:23)
[2019-06-04] MEDS ORDERED: ACETAMINOPHEN 325 MG TABLET PO PRN (10:00)
[2019-06-04 12:30] VITALS: BP 94/58
[2019-06-04] MEDS ORDERED: WARFARIN 3 MG TABLET PO-COUM ONE (18:00)
[2019-06-04 19:22] VITALS: BP 99/65
[2019-06-04] MEDS: LORazepam 1MG TABLET PO PRN (22:03)
[2019-06-05 00:55] VITALS: BP 95/68
[2019-06-05] MEDS: LORazepam 1MG TABLET PO PRN ×2 (01:55→06:04)
[2019-06-05 05:55] LABS: BASOPHILS # (AUTO) 0.02 x10^3/uL (0-0.1); BASOPHILS % (AUTO) 0 % (0-1); EOSINOPHILS # (AUTO) 0.06 x10^3/uL (0-0.4); EOSINOPHILS % (AUTO) 1 % (1-7); INTERNATIONAL NORMALIZED RATIO 1.51 (0.93-1.1); LYMPHOCYTES # (AUTO) 1.37 x10^3/uL (1-3.4); LYMPHOCYTES % (AUTO) 29 % (22-44); MD NO; MEAN CORPUSCULAR HEMOGLOBIN 34.3 pg (27.0-34.8); MEAN CORPUSCULAR HGB CONC 33.2 g/dL (32.4-35.8); MEAN CORPUSCULAR VOLUME 103.4 fL (80-100); MEAN PLATELET VOLUME 8.7 fL (7.4-10.4); MONOCYTES # (AUTO) 0.43 x10^3/uL (0.2-0.8); MONOCYTES % (AUTO) 9 % (2-9); NEUTROPHILS # (AUTO) 2.86 x10^3/uL (1.8-6.8); NEUTROPHILS % (AUTO) 60 % (42-75); PLATELET COUNT 104 x10^3/uL (130-400); PROTHROMBIN TIME 16.1 Seconds (9.6-11.5); RED CELL DISTRIBUTION WIDTH 14.5 % (9.6-15.2)
[2019-06-05 05:59] LABS: CHLORIDE 105 mmol/L (98-107)
[2019-06-05 06:03] LABS: ANION GAP 7 mmol/L (5-15); CALCIUM 9.5 mg/dL (8.5-10.1); CREATININE 0.53 mg/dL (0.55-1.02)
[2019-06-05 07:32] VITALS: BP 118/76
[2019-06-05] MEDS: OMEPRAZOLE 20 MG CAPSULE.DR PO SCH (08:09)
[2019-06-05] MEDS: MULTIVITAMINS/MINERALS TABLET PO SCH (08:09)
[2019-06-05] MEDS: THIAMINE 100MG TABLET PO SCH (08:09)
[2019-06-05] MEDS: FOLIC ACID 1 MG TABLET PO SCH (08:10)
[2019-06-05] MEDS: LORazepam 0.5MG TABLET PO PRN (08:19)
[2019-06-05] MEDS ORDERED: MAGNESIUM SULFATE PMX 2GM/50ML 50 ML IV ONE (09:30)
[2019-06-05 13:49] VITALS: BP 99/65
[2019-06-05] MEDS: CHLORDIAZEPOXIDE 25 MG CAPSULE PO PRN ×2 (16:24→22:07)
[2019-06-05] MEDS ORDERED: WARFARIN 7.5 MG TABLET PO-COUM ONE (18:00)
[2019-06-05 20:07] VITALS: BP 104/63
[2019-06-06 03:01] VITALS: BP 103/69
[2019-06-06] MEDS: CHLORDIAZEPOXIDE 25 MG CAPSULE PO PRN ×2 (05:31→18:42)
[2019-06-06 06:18] LABS: INTERNATIONAL NORMALIZED RATIO 1.49 (0.93-1.1); PROTHROMBIN TIME 15.9 Seconds (9.6-11.5)
[2019-06-06 07:40] VITALS: BP 116/65
[2019-06-06] MEDS: FOLIC ACID 1 MG TABLET PO SCH (07:44)
[2019-06-06] MEDS: THIAMINE 100MG TABLET PO SCH (07:44)
[2019-06-06] MEDS: OMEPRAZOLE 20 MG CAPSULE.DR PO SCH (07:44)
[2019-06-06] MEDS: MULTIVITAMINS/MINERALS TABLET PO SCH (07:45)
[2019-06-06 12:21] VITALS: BP 109/58
[2019-06-06] MEDS ORDERED: WARFARIN 7.5 MG TABLET PO-COUM ONE (18:00)
[2019-06-06 18:40] VITALS: BP 116/60
[2019-06-07] MEDS: CHLORDIAZEPOXIDE 25 MG CAPSULE PO PRN ×4 (00:52→21:50)
[2019-06-07 00:53] VITALS: BP 120/66
[2019-06-07 05:58] LABS: INTERNATIONAL NORMALIZED RATIO 1.48 (0.93-1.1); PROTHROMBIN TIME 15.8 Seconds (9.6-11.5)
[2019-06-07 06:08] VITALS: BP 125/71
[2019-06-07] MEDS ORDERED: FLUO60TA PO (06:44)
[2019-06-07] MEDS: FOLIC ACID 1 MG TABLET PO SCH (07:47)
[2019-06-07] MEDS: THIAMINE 100MG TABLET PO SCH (07:47)
[2019-06-07] MEDS: OMEPRAZOLE 20 MG CAPSULE.DR PO SCH (07:47)
[2019-06-07] MEDS: MULTIVITAMINS/MINERALS TABLET PO SCH (07:47)
[2019-06-07] MEDS: FLUOXETINE HCL 20 MG CAPSULE PO SCH (09:17)
[2019-06-07 13:00] VITALS: BP 120/83
[2019-06-07] MEDS ORDERED: WARFARIN 10 MG TABLET PO-COUM ONE (18:00)
[2019-06-07 21:40] VITALS: BP 123/72
[2019-06-08 00:14] VITALS: BP 168/69
[2019-06-08 05:54] LABS: INTERNATIONAL NORMALIZED RATIO 1.66 (0.93-1.1); PROTHROMBIN TIME 17.7 Seconds (9.6-11.5)
[2019-06-08 07:30] VITALS: BP 113/71
[2019-06-08] MEDS: OMEPRAZOLE 20 MG CAPSULE.DR PO SCH (07:30)
[2019-06-08 08:00] VITALS: BP 113/71
[2019-06-08] MEDS: FOLIC ACID 1 MG TABLET PO SCH (08:02)
[2019-06-08] MEDS: CHLORDIAZEPOXIDE 25 MG CAPSULE PO PRN ×2 (08:03→20:57)
[2019-06-08] MEDS: THIAMINE 100MG TABLET PO SCH (08:03)
[2019-06-08] MEDS: FLUOXETINE HCL 20 MG CAPSULE PO SCH (08:03)
[2019-06-08] MEDS: MULTIVITAMINS/MINERALS TABLET PO SCH (08:03)
[2019-06-08 12:14] VITALS: BP 147/67
[2019-06-08 21:10] VITALS: BP 107/72
[2019-06-09 01:18] VITALS: BP 147/80
[2019-06-09] MEDS: CHLORDIAZEPOXIDE 25 MG CAPSULE PO PRN ×3 (03:43→21:42)
[2019-06-09 04:30] LABS: INTERNATIONAL NORMALIZED RATIO 1.55 (0.93-1.1); PROTHROMBIN TIME 16.5 Seconds (9.6-11.5)
[2019-06-09] MEDS: THIAMINE 100MG TABLET PO SCH (07:40)
[2019-06-09] MEDS: FOLIC ACID 1 MG TABLET PO SCH (07:40)
[2019-06-09] MEDS: MULTIVITAMINS/MINERALS TABLET PO SCH (07:40)
[2019-06-09] MEDS: FLUOXETINE HCL 20 MG CAPSULE PO SCH (07:40)
[2019-06-09] MEDS: OMEPRAZOLE 20 MG CAPSULE.DR PO SCH (07:40)
[2019-06-09 08:03] VITALS: BP 127/78
[2019-06-09] MEDS ORDERED: HEPARIN 5,000 UNITS/ML, 1ML IV ONE (09:00)
[2019-06-09 09:25] LABS: D-DIMER 0.75 ug/mlFEU (0.00-0.52)
[2019-06-09 09:26] LABS: ALANINE AMINOTRANSFERASE 24 U/L (12-78); ALBUMIN 3.1 g/dL (3.4-5.0); ANION GAP 6 mmol/L (5-15); CALCIUM 8.9 mg/dL (8.5-10.1); CHLORIDE 109 mmol/L (98-107); CREATININE 0.51 mg/dL (0.55-1.02)
[2019-06-09 09:28] LABS: ALKALINE PHOSPHATASE 88 U/L (45-117); BILIRUBIN,TOTAL 0.6 mg/dL (0.2-1.0); TOTAL PROTEIN 6.7 g/dL (6.4-8.2)
[2019-06-09 10:20] LABS: MD YES; MEAN CORPUSCULAR HEMOGLOBIN 34.3 pg (27.0-34.8); MEAN CORPUSCULAR HGB CONC 33.5 g/dL (32.4-35.8); MEAN CORPUSCULAR VOLUME 102.5 fL (80-100); MEAN PLATELET VOLUME 8.2 fL (7.4-10.4); PLATELET COUNT 79 x10^3/uL (130-400); RED CELL DISTRIBUTION WIDTH 14.3 % (9.6-15.2)
[2019-06-09 10:47] LABS: <PLATELET ESTIMATE> DECREASED; <PLT MORPHOLOGY> NORMAL PLT MORPH
[2019-06-09] MEDS ORDERED: WARFARIN 10 MG TABLET PO-COUM ONE (11:00)
[2019-06-09] MEDS: HEPARIN 25,000 UNITS/250ML PMX 250 ML IV PRN (12:30)
[2019-06-09 12:33] LABS: BASOPHILS # (AUTO) 0.01 x10^3/uL (0-0.1); BASOPHILS % (AUTO) 0 % (0-1); EOSINOPHILS # (AUTO) 0.05 x10^3/uL (0-0.4); EOSINOPHILS % (AUTO) 2 % (1-7); LYMPHOCYTES % (AUTO) 31 % (22-44); MONOCYTES # (AUTO) 0.47 x10^3/uL (0.2-0.8); MONOCYTES % (AUTO) 15 % (2-9); NEUTROPHILS # (AUTO) 1.65 x10^3/uL (1.8-6.8); NEUTROPHILS % (AUTO) 52 % (42-75)
[2019-06-09 12:42] LABS: BASOS#(MANUAL) 0.03 x10^3/uL (0-0.1); BASOS% (MANUAL) 1 % (0-1); EOS#(MANUAL) 0.06 x10^3/uL (0.0-0.4); EOS% (MANUAL) 2 % (1-7); LYMPHS% (MANUAL) 28 % (22-44); MONOS#(MANUAL) 0.35 x10^3/uL (0.3-2.7); MONOS% (MANUAL) 11 % (2-9); OVALOCYTES 1+; SEG#(MANUAL) 1.86 x10^3/uL (1.8-6.8); SEGS% (MANUAL) 58 % (42-75)
[2019-06-09 15:01] VITALS: BP 104/60
[2019-06-09 19:54] VITALS: BP 116/72
[2019-06-09] MEDS: HEPARIN 5,000 UNITS/ML, 1ML IV PRN (20:30)
[2019-06-10 00:14] VITALS: BP 110/75
[2019-06-10] MEDS: CHLORDIAZEPOXIDE 25 MG CAPSULE PO PRN ×3 (03:15→21:10)
[2019-06-10 03:21] LABS: INTERNATIONAL NORMALIZED RATIO 1.39 (0.93-1.1); PROTHROMBIN TIME 14.8 Seconds (9.6-11.5)
[2019-06-10] MEDS: FLUOXETINE HCL 20 MG CAPSULE PO SCH (07:49)
[2019-06-10] MEDS: FOLIC ACID 1 MG TABLET PO SCH (07:49)
[2019-06-10] MEDS: MULTIVITAMINS/MINERALS TABLET PO SCH (07:49)
[2019-06-10] MEDS: THIAMINE 100MG TABLET PO SCH (07:49)
[2019-06-10] MEDS: OMEPRAZOLE 20 MG CAPSULE.DR PO SCH (07:49)
[2019-06-10 09:01] VITALS: BP 122/76
[2019-06-10] MEDS: HEPARIN 5,000 UNITS/ML, 1ML IV PRN (10:02)
[2019-06-10 15:28] VITALS: BP 109/70
[2019-06-10] MEDS ORDERED: WARFARIN 10 MG TABLET PO-COUM ONE (18:00)
[2019-06-10 19:25] VITALS: BP 119/71
[2019-06-11] MEDS: HEPARIN 25,000 UNITS/250ML PMX 250 ML IV PRN (00:17)
[2019-06-11 01:11] VITALS: BP 119/82
[2019-06-11] MEDS: CHLORDIAZEPOXIDE 25 MG CAPSULE PO PRN ×4 (03:09→22:39)
[2019-06-11 05:09] LABS: INTERNATIONAL NORMALIZED RATIO 1.7 (0.93-1.1); PROTHROMBIN TIME 18.1 Seconds (9.6-11.5)
[2019-06-11] MEDS: HEPARIN 5,000 UNITS/ML, 1ML IV PRN (05:20)
[2019-06-11 07:00] VITALS: BP 125/78
[2019-06-11] MEDS: MULTIVITAMINS/MINERALS TABLET PO SCH (09:09)
[2019-06-11] MEDS: OMEPRAZOLE 20 MG CAPSULE.DR PO SCH (09:09)
[2019-06-11] MEDS: FOLIC ACID 1 MG TABLET PO SCH (09:09)
[2019-06-11] MEDS: FLUOXETINE HCL 20 MG CAPSULE PO SCH (09:10)
[2019-06-11] MEDS: THIAMINE 100MG TABLET PO SCH (09:10)
[2019-06-11 14:39] VITALS: BP 105/68
[2019-06-11] MEDS ORDERED: WARFARIN 10 MG TABLET PO-COUM ONE (18:00)
[2019-06-11 20:34] VITALS: BP 102/67
[2019-06-12 01:41] VITALS: BP 121/80
[2019-06-12 05:08] LABS: INTERNATIONAL NORMALIZED RATIO 2.12 (0.93-1.1); PROTHROMBIN TIME 22.6 Seconds (9.6-11.5)
[2019-06-12] MEDS: HEPARIN 25,000 UNITS/250ML PMX 250 ML IV PRN (06:41)
[2019-06-12] MEDS: CHLORDIAZEPOXIDE 25 MG CAPSULE PO PRN ×2 (06:45→20:43)
[2019-06-12 08:05] VITALS: BP 123/84
[2019-06-12] MEDS: OMEPRAZOLE 20 MG CAPSULE.DR PO SCH (08:37)
[2019-06-12] MEDS: FOLIC ACID 1 MG TABLET PO SCH (08:37)
[2019-06-12] MEDS: FLUOXETINE HCL 20 MG CAPSULE PO SCH (08:37)
[2019-06-12] MEDS: MULTIVITAMINS/MINERALS TABLET PO SCH (08:38)
[2019-06-12] MEDS: THIAMINE 100MG TABLET PO SCH (08:38)
[2019-06-12 10:13] LABS: HIT RESULT NEGATIVE (NEGATIVE)
[2019-06-12 14:07] VITALS: BP 108/70
[2019-06-12] MEDS ORDERED: WARFARIN 10 MG TABLET PO-COUM ONE (18:00)
[2019-06-12 19:22] VITALS: BP 137/72
[2019-06-13 01:53] VITALS: BP 97/62
[2019-06-13] MEDS: CHLORDIAZEPOXIDE 25 MG CAPSULE PO PRN ×2 (02:34→09:51)
[2019-06-13 05:37] LABS: INTERNATIONAL NORMALIZED RATIO 2.38 (0.93-1.1); PROTHROMBIN TIME 25.4 Seconds (9.6-11.5)
[2019-06-13 06:56] VITALS: BP 157/79
[2019-06-13] MEDS: OMEPRAZOLE 20 MG CAPSULE.DR PO SCH (08:00)
[2019-06-13 08:11] VITALS: BP 116/81
[2019-06-13] MEDS: THIAMINE 100MG TABLET PO SCH (08:38)
[2019-06-13] MEDS: FLUOXETINE HCL 20 MG CAPSULE PO SCH (08:38)
[2019-06-13] MEDS: FOLIC ACID 1 MG TABLET PO SCH (08:38)
[2019-06-13] MEDS: MULTIVITAMINS/MINERALS TABLET PO SCH (08:38)
[2019-06-13 13:12] VITALS: BP 111/70
[2019-06-13] MEDS ORDERED: OMEP-110 PO (13:33)
[2019-06-13] MEDS ORDERED: WARFARIN 10 MG TABLET PO-COUM ONE (18:00)
[2019-06-13 19:17] VITALS: BP 114/75
== END 2019-06-13 21:15 | DRG 917 ==
LOC: ED 06-01 00:01 → EDIP 06-01 00:07 → 5SO 06-01 02:07 → 3WST 06-03 10:58 → 4NW 06-04 16:51 → 3N 06-08 15:13
PROVIDERS: ATTEND Internal Medicine
DX: T43.212A Poisoning by selective serotonin and norepinephrine reuptake inhibitors, intentional self-harm, initial encounter (principal); G92 Toxic encephalopathy; F33.2 Major depressive disorder, recurrent severe without psychotic features; E46 Unspecified protein-calorie malnutrition; Z68.1 Body mass index [BMI] 19.9 or less, adult; I51.3 Intracardiac thrombosis, not elsewhere classified; F10.229 Alcohol dependence with intoxication, unspecified; E83.42 Hypomagnesemia; E87.6 Hypokalemia; F17.210 Nicotine dependence, cigarettes, uncomplicated; J45.909 Unspecified asthma, uncomplicated; G89.29 Other chronic pain; F41.9 Anxiety disorder, unspecified; D75.82 Heparin induced thrombocytopenia (HIT); Z79.899 Other long term (current) drug therapy; Z85.3 Personal history of malignant neoplasm of breast; Z63.8 Other specified problems related to primary support group; Z86.711 Personal history of pulmonary embolism; Z90.13 Acquired absence of bilateral breasts and nipples; Z90.49 Acquired absence of other specified parts of digestive tract; Z79.01 Long term (current) use of anticoagulants; Z91.5 Personal history of self-harm; Z93.3 Colostomy status; Z88.5 Allergy status to narcotic agent; Z88.1 Allergy status to other antibiotic agents; Y92.89 Other specified places as the place of occurrence of the external cause; Z03.818 Encounter for observation for suspected exposure to other biological agents ruled out; M79.662 Pain in left lower leg
CPT/HCPCS: 36415; 71045; 74018; 80048; 80053; 80307; 81003; 83735; 84100; 84443; 84484; 84703; 85025; 85379; 85520; 85610; 86022; 87040; 87324; 93005; 93306; 99291; G0378; J1644; J3480; J3475; J7030; J7050; U0001

== ENCOUNTER 2020-08-01 08:12 | Emergency (ER) | payer MEDICAID ==
[~2020-08-01] VITALS: Ht 162.6 cm; Wt 49.0 kg
[~2020-08-01 08:12] MED LIST changes: +FLUO60TA PO; -FOLI-17 PO; +FOLI1TAB32 PO; +PANT20TA2 PO; +TRAZ50TA66 PO; +WARF-36 PO
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
[2020-08-01] MEDS ORDERED: DIAZEPAM 10 MG TABLET PO ONE (09:00)
[2020-08-01] MEDS ORDERED: OXYcodone/APAP 5/325MG TABLET PO ONE (09:00)
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
[2020-08-01] MEDS ORDERED: OXYcodone/APAP 5/325MG TABLET ONE (09:03)
[2020-08-01] MEDS ORDERED: DIAZEPAM 5 MG TABLET ONE (09:03)
--- NOTE | 2020-08-01 09:05 | NUR ---
Pt currently in CT.
[2020-08-01 09:13] LABS: INTERNATIONAL NORMALIZED RATIO 0.98 (0.93-1.1); PROTHROMBIN TIME 10.5 Seconds (9.6-11.5)
--- NOTE | 2020-08-01 09:24 | NUR ---
Pt back from CT, medicated per APR. Pt resting in bed, denies other needs.
--- NOTE | 2020-08-01 09:25 | NUR ---
Report to Adriana STEWARD.
--- NOTE | 2020-08-01 09:29 | NUR ---
REPORT FROM NICHELLE JOHNSON.
[2020-08-01 10:10] VITALS: BP 119/80
--- NOTE | 2020-08-01 10:21 | NUR ---
[employer] DISPATCH, SAAD, CALLED. SAAD STATED THE CALL IS STILL OUT TO AN OFFICER AND THEY WILL BE HERE DARY[place].
--- NOTE | 2020-08-01 11:41 | NUR ---
[employer] AT BEDSIDE.
--- NOTE | 2020-08-01 12:17 | NUR ---
[facility] AT BEDSIDE.
== END 2020-08-01 12:32 | disposition home or self-care (01) ==
LOC: ED 10:29
DX: S16.1XXA Strain of muscle, fascia and tendon at neck level, initial encounter (principal); S39.012A Strain of muscle, fascia and tendon of lower back, initial encounter; S29.012A Strain of muscle and tendon of back wall of thorax, initial encounter; S00.03XA Contusion of scalp, initial encounter; Z85.3 Personal history of malignant neoplasm of breast; T76.21XA Adult sexual abuse, suspected, initial encounter; Y93.89 Activity, other specified; Y92.410 Unspecified street and highway as the place of occurrence of the external cause; Y99.8 Other external cause status
CPT/HCPCS: 36415; 70450; 72072; 72110; 72125; 85610; 99285